=== PATIENT | male | born 1965 ===

== ENCOUNTER 2024-12-17 15:36 | Outpatient (AMB) | payer OTHER, SELFPAY ==
--- OUTSIDE RECORDS SUMMARY | 2023-12-05 10:00 | XMS_ITS ---
Author Organization 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 [address] [place] [address] 12/05/2023 Emmanuel Real Plan Of Treatment No Information Progress Notes * Basil TAVERASaulB:[birth year] (59 yo M)Acc No.[id number]:12/05/2023 Progress Notes Patient: Kevin FRASER Provider: Rosalinda Real MD :1965 A ge:58 Y S ex:Male Date:12/05/2023 Address:[address] [place], [place] [id number] Subjective: * Chief Complaints: * 1 . S. * Medical History: Objective: * Vitals: Assessment: Plan: * Treatment: * Care Plan Details* * Electronic signature of Cecy Real MD on 12/17/2024 at 03:49 PM EDT Sign off status: Pending * Provider: Rosalinda Real MD Date: 12/05/2023 Generated for Printi ng/Faxing/eTransmitting on: 12/17/2024 03:49 PM EDT
[2024-12-17 15:48] VITALS: BP 107/70; PULSE 81; RESP 18; O2SAT 99; BMI 24.1
--- NOTE | 2024-12-17 15:48 | MHC.OFFVIS ---
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 He reports that his pain started long time ago in 2019 in July when he probably had COVID infection. 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 For this condition he had surgical repair. Since that time he is suffering from lower back pain. Denies radiation of the pain in bilateral lower extremities. However he admits that his legs are getting weak and cramping. He reports that Valsalva maneuver does not aggravate his pain. He reports that pain in the night is most severe. He takes 1 pill of oxycodone q.h.s. at home. He also takes clonazepam at night to mg q.h.s.. He reports that this allows him to rest at night. He never had any physical therapy for his pain. He never received any chiropractic manipulation. He never received any injections. We do not have any imaging available for this gentleman. His past medical history significant for complete heart block for which he was inserted with pacemaker. He reports that his stress 6 months ago was normal. No history of heart attack. He developed multiple severe clotting problems including upper torso veins completely blocked. He is currently taking Eliquis. He denies smoking cigarettes drinking alcohol he denies recreational drugs. Review of Systems Const All systems reviewed & are unremarkable except as noted in HPI and below ENT Reports Normal hearing present Neuro Reports Normal hearing present, Denies Abnormal speech present and Denies Sensory deficit (Neuro) Physical Exam Vital Signs: Last Vital Signs Pulse 81 12/17/24 15:48 Resp 18 12/17/24 15:48 BP 107/70 12/17/24 15:48 Pulse Ox 99 12/17/24 15:48 Oxygen Delivery Method Room Air 12/17/24 15:48 BMI result Body Mass Index 24.1 Const General: no acute distress, well developed and well groomed Nutritional Appearance: underweight Orientation/consciousness: patient oriented x3 Limitations: no limitations Eyes General: appearance normal, both eyes and all related structures Pupils: Equal, round and reactive pupils present EOM: EOMs intact bilaterally Neck Neck: Yes full ROM Chest Chest palpation & inspection: normal inspection of the chest Resp Effort & Inspection: normal respiratory effort, able to speak in complete sentences, normal respiratory pattern, no audible wheezes and no cough Cardio Jugular venous distension: no JVD Back/Spine/Pelvis Other: Able to stand on bilateral tiptoes in bilateral heels without difficulty. Able to lift 1st toe in separation of the rest of the toes from the ground. This demonstrates normal strength of bilateral L4-5 S1 distribution. Able to flex himself forward and LEs himself backwards however reports pain with both maneuvers. SLR is negative bilaterally. Lasegue test is negative bilaterally. Patellar reflexes +2 bilaterally. Achilles reflexes +1 bilaterally. Compared to brachioradialis +1 bilaterally. Wilfredo test is positive on the right. Pelvic compression test is positive on the right. Gaenslen test is positive on the right. Neuro General: patient oriented x3 and gait normal Cranial nerves: Yes CN's II-XII intact bilaterally, Yes Equal, round and reactive pupils present, Yes Normal hearing present and Yes Ability to bilaterally elevate shoulders present Speech: No Abnormal speech present Gait exam (Neuro): Normal gait present Motor exam (neuro): 5/5 motor strength present throughout Sensory Exam: No Sensory deficit (Neuro) Extrem General: No pedal edema Psych Speech and movement: Normal speech and movement present Affect: normal affect Attitude: cooperative Thought process: Normal thought process present Thought content: Normal thought content present Insight: Good insight present (Psych) Judgement: Good judgement present (Psych) Assessment & Plan Assessment & Plan (1) Sacroiliitis: Code(s): M46.1 - Sacroiliitis, not elsewhere classified Category: Medical (2) Sacroiliac joint dysfunction of right side: Code(s): M53.3 - Sacrococcygeal disorders, not elsewhere classified Category: Medical (3) Chronic pain syndrome: Code(s): G89.4 - Chronic pain syndrome Category: Medical Plan In summary: 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 I will schedule him for sacroiliac joint injection in the right diagnostic. I will schedule him in December for this procedure. After that we will assess the results of the injection. If this injection will help his pain we will discuss possibility of interventional pain management for the sacroiliac joint pain. If the sacroiliac joint injection would not be diagnostic for right sacroiliac joint pain and sacroiliitis on the right we would need to obtain some images on this patient. Coding Level of Care Code New Pt Level 3 (88318) Diagnoses Sacroiliitis M46.1 Sacroiliac joint dysfunction of right side M53.3 Chronic pain syndrome G89.4
--- OUTSIDE RECORDS SUMMARY | 2024-12-17 15:50 | XMS_ITS | Encounter Summary ---
Author Organization [facility] Address [address] [place] [address] Phone Care Team Providers Care Garde Manger Name Role Phone Fili Dunham MD Primary Care Provider Encounter Details Date Type Department Care Team ([facility] st Contact Info) Description 12/15/2024 Telephone [facility] Medicine [address] [place], [place] [id number] Fili Dunham MD [address] [place] [address] [email or web address] Social History Tobacco Use Types Packs/Day Years Used Date Smoking Tobacco: Former Cigarettes Cigars Smokeless Tobacco: Never Alcohol Use Standard Drinks/Week Comments Yes 1 (1 standard drink = 0.6 oz pur e alcohol) Child or Family Care Answer Date Record ed Do you have problems with on e of the following making it difficult for you to work, study, or receive health care? No 01/14/2024 Education Answer Date Recorded Are you interested in help w ith more adult education (for example, completing high school, GED, job training, learning the Italian language, technical skills, or developing parenting skills)? No 01/14/2024 Are you concerned about learning? Not on file 01/14/2024 No 01/14/2024 Yes 01/14/2024 Food Answer Date Recorded Within the past 6 months we worried whether our food would run out before we got money to buy more. Often True 01/14/2024 Within the past 6 months the food we bought just didn't last and we didn't have enough money to get more. Often True Residential Stability Answer Date Recor ded What is your housing situation today? I have josephine howard 01/14/2024 How many times have you moved in the past 12 sun ths? Two or more times 01/14/2024 Paying for Meds Answer Date Recorded Do you have trouble paying for medicines? Yes 01/14/2024 Paying Utility Bills Answer Date Record ed Do you have trouble paying y our heating or electricity bill? I choose not to answer 01/14/2024 Transportation Answer Date Recorded Has the lack of transportati on kept you from medical appointments or from getting medications? No 01/14/2024 Digital Access Answer Date Recorded No 01/14/2024 Yes 01/14/2024 Do you have reliable internet access at home? Ye s 01/14/2024 Do you have a device (e.g., phone, tablet, computer) with a working camera? Yes 01/14/2024 Intimate Partner Violence Answer Date R ecorded Denied Basic Needs Not on file 01/14/2024 In the past 12 months have y ou been in a relationship with a person who hurts, threatens, or tries to control you? No 01/14/2024 Worried food would run out Not on file 01/13 In the past 12 months have y ou been in a relationship with a person who hurts, threatens, or tries to control you? No 01/14/2024 Sex and Gender Information Value Date Recorded Sex Assigned at Not on file Legal Sex Male 3:48 PM EDT Gender Identity Not on file Sexual Orientation Not on file documented as of this encounter Progress Notes * Elvira Wynn - 12/15/2024 10:31 AM EDT Pls complete office visit notes from 12/09- so we can send over referral. Thank you documented in this encounter Plan of Treatment Not on file documented as of this encounter Visit Diagnoses Not on filedocumented in this encounter Additional Health Concerns Assessment Noted Time PHQ-9 Depression Total Score: 4 09/09/19 25 4:12 PM EDT PHQ-2 Depression Total Score: 3 09/09/19 25 4:12 PM EDT documented as of this encounter Care Teams Garde Manger Relationship Specialty Start Date End Date Fili Dunham MD [address] [place] [address], [address] [place] [address] [email or web address] PCP - General Family Medicine 01/17/24 documented as of this encounter Additional Source Comments The information contained in this document represents components of the legal health record. It is not the complete legal health record.[facility]
--- OUTSIDE RECORDS SUMMARY | 2024-12-17 15:50 | XMS_ITS | Patient Health Record ---
Author Organization [facility] Address [address] [place] [address] Care Team Providers Care Loom Starter Name Role Phone NATALI[facility] PATTON Unavailable [phone] Reason For Referral No Information Medications Medication SIG (Take, Route, Frequency, Duration) Notes Start Date End Date Status oxyCODONE HCl 5 MG (Schedule II Drug) T MICHELET 1 TABLET BY MOUTH EVERY 6 HOURS NEEDED FOR PAIN Oral for 11 Active Lisinopril 5 MG TAKE 1 TABLET BY ALIREZA TH EVERY DAY Oral for 90 Active ALPRAZolam 1 MG (Schedule IV Drug) T MICHELET 1 TABLET BY MOUTH TWICE A DAY Oral for 30 Active Eliquis 5 MG TWICE DAILY Orally for 30 Active Carvedilol 6.25 MG TAKE 1 TABLET BY ALIREZA TH TWICE A DAY WITH FOOD Oral for 90 Active Flexeril 10 1 tablet orally PRN Active Atorvastatin Calcium 20 MG 1 tablet Oral ly Once a day for 30 day(s) Active Aspirin 81 MG 1 tablet Orally Once a day for 30 day(s) Active Social History Tobacco Use: Social History Observation Description Date Details (start date - stop date) Never Smoker NA - NA Tobacco Use/Smoking Question Answer Notes Are you a nonsmoker Alcohol Screen (Audit-C) Question Answer Notes Did you have a drink containing alcohol in the p ast year? 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) Active confirmed Problem Bradycardia (60461780) Bradycardia, unspecified (R00.1) Active confirmed Problem Syncope and collapse (704643347) Syncope and collapse (R55) Active confirmed Problem Cardiac pacemaker in situ (060421816) Presence of cardiac pacemaker (Z95.0) Active confirmed Problem Dissection of artery (824015964) Dissection of other specified artery (I77.79) Active confirmed Problem BMI less than 20 (020465117) Body mass index (BMI) 19.9 or less, adult (Z68.1) Active confirmed Plan Of Treatment No Information Insurance Providers Payer Name Payer Address Payer Phone Subscriber Number Group Number Insured Name Patient Relationship to Insured Coverage Start Date Coverage End Date [facility] [address] [place] [address] [id number] PPO [employer]ICE [employer] Self - patient is the insured Medical (General) History Medical History History ICD Code Dissection of other specified artery I77 .79 Dissection of renal artery I77.73 Bradycardia, unspecified R00.1 Syncope and collapse R55 Atrioventricular block, complete I44.2 Surgical History Surgery Date(Month/Year)
--- OUTSIDE RECORDS SUMMARY | 2024-12-17 15:50 | XMS_ITS | Patient Health Record ---
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 Name Role Phone Emmanuel Real Primary Care Provider Jasen Ma Unavailable Allergies No Known Allergies Reason For Referral No Information Medications Medication SIG (Take, Route, Frequency, Duration) Notes Start Date End Date Status Atorvastatin Calcium 20 MG TAKE 1 TABLET BY MOUTH EVERY DAY FOR 90 DAYS for 90 Active predniSONE 20 MG 1 tablet Orally Once a day for 30 day(s) Not-Taking PriLOSEC OTC 20 MG 1 tablet 30 minutes before morning meal Orally Once a day for 30 day(s) Active Carvedilol 6.25 MG 1 tablet with food Orally Twice a day for 30 day(s) Active Cyclobenzaprine HCl 10 MG 1 tablet at be dtime as needed Orally Once a day for 30 day(s) Active Eliquis 5 MG as directed Orally twice a day Active Xanax 1 MG 1 tablet Orally 2-3 times per week PRN Active Lisinopril 10 MG 1 tablet Orally Once a day Active Aspir-81 Active oxyCODONE HCl 5 MG 1 capsule as needed Orally every 6 hrs PRN Active Social History Tobacco Use: Social History Observation Description Date Details (start date - stop date) Never Smoker NA - NA Tobacco Use/Smoking Question Answer Notes Are you a nonsmoker Alcohol Screen Question Answer Notes Did you have a drink containing alcohol in the p ast year? No Points 0 Interpretation Negative Problems Problem Type SNOMED Code ICD Code Onset Dates Problem Status W/U Status Risk Notes Problem Mixed hyperlipidemia (275607223) Mixed hyperlipidemia (E78.2) Active confirmed Problem Essential hypertension (50911247) Essential (primary) hypertension (I10) Active confirmed Problem Heart block (876127953) Other specified heart block (I45.5) Active confirmed Problem Cardiac pacemaker in situ (284804506) Presence of cardiac pacemaker (Z95.0) Active confirmed Plan Of Treatment Pending Test Test Name Order Date Lipid Panel And Chol/HDL Ratio 1 Comp. Metabolic Panel (14) 12/07/2020 Future Test Test Name Order Date Lipid Panel 03/10/2020 Comp. Metabolic Panel (14) 03/10/2020 Echocardiogram 07/04/2021 CBC With Differential/Platelet 2 Lipid Panel 07/04/2021 Comp. Metabolic Panel (14) 07/04/2021 Insurance Providers Payer Name Payer Address Payer Phone Subscriber Number Group Number Insured Name Patient Relationship to Insured Coverage Start Date Coverage End Date [facility] [address] [place] [address] [id number] EUNICE [employer]IVE Self - patient is the insured Medical (General) History Medical History History ICD Code SMA renal artery trombosis with infarct complete heart block s/p PPM dyslipidemia HTN Surgical History Surgery Date(Month/Year) cardiac pacemeker 01/20/2020 Hospitalization History Reason Date(Month/Year) syncope
== END 2024-12-17 15:59 | disposition home or self-care (01) ==
PROVIDERS: PCP Family Medicine; Visit Provider Anesthesiology
DX: M46.1 Sacroiliitis, not elsewhere classified (principal); M53.3 Sacrococcygeal disorders, not elsewhere classified; G89.4 Chronic pain syndrome
CPT/HCPCS: 99203